=== PATIENT | female | born 1950 | race Two or more races ===

== ENCOUNTER 2019-05-30 06:32 | Day surgery (SDC) | payer MEDICARE, MEDICAID ==
[2019-05-30] MEDS ORDERED: EPINEPHRINE (1:1000) 1 MG/ML AMPUL ONE (11:43)
[2019-05-30] MEDS ORDERED: CLINDAMYCIN 900 MG/6 ML VIAL ONE (11:55)
[2019-05-30] MEDS ORDERED: BUPIVACAINE 0.5 % PF 150 MG/30 ML VIAL ONE (12:00)
[2019-05-30] MEDS ORDERED: FENTANYL PF 100MCG/2ML AMPUL ONE (14:04)
== END 2019-05-30 15:15 | disposition home or self-care (01) ==
LOC: DS 06:32
PROVIDERS: ATTEND Specialist
DX: M75.122 Complete rotator cuff tear or rupture of left shoulder, not specified as traumatic (principal); M19.012 Primary osteoarthritis, left shoulder; M75.42 Impingement syndrome of left shoulder; M65.812 Other synovitis and tenosynovitis, left shoulder; I10 Essential (primary) hypertension; E11.9 Type 2 diabetes mellitus without complications; I25.10 Atherosclerotic heart disease of native coronary artery without angina pectoris; E78.00 Pure hypercholesterolemia, unspecified; Z85.41 Personal history of malignant neoplasm of cervix uteri; Z98.891 History of uterine scar from previous surgery; Z88.0 Allergy status to penicillin
CPT/HCPCS: 29820; 29824; 29826; 29827; 88304; 88311; 88312; A4217; A4565; C1713; J0171; J2405; J2704; J2765; J3010; J3490 ×3